=== PATIENT | male | born 1995 | race Caucasian/White ===

== ENCOUNTER 2019-01-18 14:34 | Emergency (ER) | payer MEDICAID ==
[~2019-01-18] VITALS: Ht 170.2 cm; Wt 91.2 kg
[2019-01-18 14:45] VITALS: Ht 170.2 cm; Wt 91.2 kg
[2019-01-18 18:21] VITALS: BP 146/79
== END 2019-01-18 18:21 | disposition home or self-care (01) ==
LOC: ED 14:34
DX: L60.0 Ingrowing nail (principal); L03.031 Cellulitis of right toe; J45.909 Unspecified asthma, uncomplicated
CPT/HCPCS: J2001